=== PATIENT | female | born 1940 | race Caucasian/White ===

== ENCOUNTER → 2016-12-18 | Outpatient (CLI) | payer BC, OTHER | LOC: RAD 08:12 | DX: M79.671 Pain in right foot (principal) ==

== ENCOUNTER → 2017-01-29 | Outpatient (CLI) | payer BC, OTHER | LOC: MRI 06:55 | DX: M79.671 Pain in right foot (principal); M72.2 Plantar fascial fibromatosis ==

== ENCOUNTER → 2017-11-12 | Outpatient (CLI) | payer BC ==
[~2017-11-12] MED LIST: TOPROL XL25 MG PO; VITAMIN D1000 UNI1 PO
== END ==
LOC: RAD 01:04
DX: Z12.31 Encounter for screening mammogram for malignant neoplasm of breast (principal)

== ENCOUNTER → 2018-11-18 | Outpatient (CLI) | payer BC, OTHER | LOC: RAD 03:31 | DX: Z12.31 Encounter for screening mammogram for malignant neoplasm of breast (principal); Z85.3 Personal history of malignant neoplasm of breast; Z90.11 Acquired absence of right breast and nipple ==

== ENCOUNTER → 2019-11-24 | Outpatient (CLI) | payer BC | LOC: BC 07:55 | DX: Z12.31 Encounter for screening mammogram for malignant neoplasm of breast (principal); N64.89 Other specified disorders of breast ==

== ENCOUNTER → 2020-11-26 | Outpatient (CLI) | payer OTHER | LOC: BC 08:10 | DX: Z12.31 Encounter for screening mammogram for malignant neoplasm of breast (principal) ==